=== PATIENT | female | born 1995 ===

== ENCOUNTER 2018-03-28 08:22 | Day surgery (SDC) | payer OTHER ==
[2018-03-27 13:33] VITALS: BMI 19.2
[2018-03-28] MEDS ORDERED: Propofol 10 mg/ml Inj (20 ML) ONE (09:56)
[2018-03-28] MEDS ORDERED: Midazolam 2 MG/2 ML VIAL ONE (09:56)
[2018-03-28] MEDS ORDERED: Lidocaine Hydrochloride 5 ML INJ ONE (10:03)
--- NOTE | 2018-03-28 10:07 | CP.SDSHP ---
Same Day Surgery H & P - History Proposed Procedure: endoscopy Pre-Op Diagnosis: reflux - Allergies Allergies: Allergies No Known Allergies Allergy (Verified 03/27/18 13:33) - Physical Exam Vital Signs: Vital Signs 03/28/18 08:43 Temperature 99.1 F Pulse Rate 67 Respiratory 14 Rate Blood Pressure 111/53 L O2 Sat by Pulse 99 Oximetry Mental Status: Alert & Oriented x3 Neuro: WNL Heart: WNL Lungs: WNL GI: WNL - Impression Impression: reflux Pt. Evaluated Today:Candidate for Anesthesia & Procedure: Yes - Date & Time Date: 03/28/18 Time: 10:07 Short Stay Discharge - Short Stay Discharge Admitting Diagnosis/Reason for Visit: GASTRO-ESOPHAGEAL REFLUX DISEASE WITHOUT ESOPHAGIT Disposition: HOME/ ROUTINE
[2018-03-28] MEDS ORDERED: Lactated Ringer's 1,000 ML IV ONE (10:10)
[2018-03-28 10:32] VITALS: TEMP 97.4
[2018-03-28 10:40] VITALS: O2SAT 99
[2018-03-28 11:15] VITALS: PULSE 59; RESP 12
[2018-03-28 11:23] VITALS: BP 92/51
== END 2018-03-28 11:21 | disposition home or self-care (01) ==
LOC: C.ENDO 08:22
PROVIDERS: ATTEND Internal Medicine Gastroenterology
DX: K21.9 Gastro-esophageal reflux disease without esophagitis (principal); K20.9 Esophagitis, unspecified
CPT/HCPCS: 43239; 84703; 88305; J2250; J2704; J3010; J7120